=== PATIENT | male | born 1965 | race Caucasian/White ===

== ENCOUNTER 2016-09-22 07:25 | Inpatient (IN) | payer OTHER ==
[2016-09-09 13:19] VITALS: BMI 32.0
--- NOTE | 2016-09-09 13:46 | PAT Medication Instructions ---
Service Date Sep 09, 2016. Current Home Medication List B-Complex Vitamins (B Complex), 1 TAB PO QAM Benazepril (Lotensin), 20 MG PO QAM Diclofenac (Voltaren), 75 MG PO BID PRN for PRN Pravastatin (Pravachol ), 40 MG PO HS Ranitidine (Zantac), 150 MG PO BID PRN for PRN Tramadol (Ultram), 50 MG PO Q8H PRN for Pain Medication Instructions For Your Scheduled Surgery - Hold the following medications 7 days prior to surgery per surgeon's instructions: Diclofenac (Voltaren), 75 MG PO BID PRN for PRN - Hold the following medications the morning of surgery: B-Complex Vitamins (B Complex), 1 TAB PO QAM Benazepril (Lotensin), 20 MG PO QAM - Take the following medications the morning of surgery with a sip of water OTHERWISE NOTHING TO EAT OR DRINK AFTER MIDNIGHT: Tramadol (Ultram), 50 MG PO Q8H PRN for Pain (may take up to 4 hours prior to surgery if needed) Ranitidine (Zantac), 150 MG PO BID PRN for PRN - Take the following medications as scheduled the night before surgery: Tramadol (Ultram), 50 MG PO Q8H PRN for Pain Ranitidine (Zantac), 150 MG PO BID PRN for PRN Pravastatin (Pravachol ), 40 MG PO HS If you have any questions please call us at [phone] or [phone] or [phone]
--- NOTE | 2016-09-09 14:16 | DIAGNOSTIC IMAGING REPORT ---
CHEST 2 VIEWS ROUTINE CLINICAL HISTORY: Preoperative chest COMPARISON STUDY: No previous studies for comparison. FINDINGS: The cardiac and mediastinal contours are normal. There is no evidence of focal pulmonary consolidation. There is no evidence of failure. No pleural effusions are visualized.[ There is a retrocardiac opacity containing an air-fluid level, consistent with a hiatal hernia. IMPRESSION: Hiatal hernia. No active disease in the chest. Electronically signed by: Long Escalona M.D. 09/09/2016 2:14 PM Dictated Date/Time: 09/09/2016 2:14 PM
[2016-09-09 14:33] LABS: BASO % 0.2 %; BASO ABS # 0.01 K/uL (0-0.2); COMPLETE YES; EOS % 2.8 %; HEMATOCRIT 45.2 % (42-52); IG% 0.2 %; LYMPH % 28.3 %; LYMPH ABS # 1.43 K/uL (1.2-3.4); MEAN CELL VOLUME 81.6 fL (80-100); MEAN CORPUSCULAR HEMOGLOBIN 28.9 pg (25-34); MEAN CORPUSCULAR HGB CONC 35.4 g/dl (32-36); MEAN PLATELET VOLUME 9.1 fL (7.4-10.4); MONO % 12.7 %; NEUT % 55.8 %; PLATELET COUNT 205 K/uL (130-400); RED BLOOD COUNT 5.54 M/uL (4.7-6.1); WHITE BLOOD COUNT 5.05 K/uL (4.8-10.8)
[2016-09-09 14:45] LABS: URINE APPEARANCE CLEAR (CLEAR); URINE BILIRUBIN NEG (NEG); URINE COLOR YELLOW; URINE NITRITE NEG (NEG); URINE PH 5.5 (4.5-7.5); URINE SPECIFIC GRAVITY 1.023 (1.000-1.030); UROBILINOGEN NEG (NEG); ZZUR CULT IF INDIC CLEAN CATCH NO
[2016-09-09 14:48] LABS: INR 0.9 (0.9-1.1); PROTHROMBIN TIME (PATIENT) 9.8 SECONDS (9.0-12.0)
[2016-09-09 14:49] LABS: MANUAL MICROSCOPIC REQUIRED? NO; REVIEW REQ? NO
[2016-09-09 14:53] LABS: BUN/CREATININE RATIO 14.1 (10-20); CALCIUM 9.2 mg/dl (8.5-10.1); CREATININE 1.3 mg/dl (0.60-1.40); POTASSIUM 3.9 mmol/L (3.5-5.1)
--- NOTE | 2016-09-12 13:26 | HISTORY & PHYSICAL EXAMINATION ---
DATE OF ADMISSION: 09/22/2016 CHIEF COMPLAINT: Right hip pain. HISTORY OF PRESENT ILLNESS: Gino is a 50-year-old male with a 2-year history of pain in his right hip. He rates his pain a 10/10. He has pain with his daily activities. He has limited standing and walking tolerance. Pain is worse with weightbearing. The patient has had injections, NSAIDs and tramadol without relief. He has failed conservative treatment and is scheduled for right hip replacement. PAST MEDICAL HISTORY: Hypertension, hypercholesterolemia and GERD. He denies heart disease, diabetes or DVT. PAST SURGICAL HISTORY: Hernia repair, cholecystectomy and tonsillectomy. SOCIAL HISTORY: The patient drinks 3 drinks per month. He denies tobacco use. He lives in a bi-level home. 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 FAMILY HISTORY: Negative for DVT. MEDICATIONS: Benazepril 20 mg daily, pravastatin 40 mg daily, ranitidine 150 mg daily, Toradol, tramadol 50 mg p.r.n., diclofenac 75 mg b.i.d. ALLERGIES: None. REVIEW OF SYSTEMS: See HPI. Ten other systems reviewed, all negative. PHYSICAL EXAMINATION: VITAL SIGNS: Height 5 feet 11 inches, weight 229 pounds, BMI is 32. GENERAL: This is a well-developed, well-nourished male who is alert and oriented x3. Mood and affect are appropriate. HEENT: Normocephalic, atraumatic. Mucous membranes are moist and intact. NECK: Supple without lymphadenopathy. HEART: Regular rate and rhythm without murmurs, rubs or gallops. LUNGS: Clear to auscultation without wheezes or rhonchi. ABDOMEN: Large and protuberant. Bowel sounds are equal and active. EXTREMITIES: No ecchymosis, redness or warmth. Thigh and calf are soft and nontender. He walks with an antalgic gait. Logroll of the hip reproduces pain in the groin. He is neurovascularly intact with +5/5 strength. X-RAY EXAMINATION: AP and lateral views show joint space narrowing and osteophyte formation. He also has evidence of cystic formation. IMPRESSION: Degenerative joint disease, right hip. PLAN: The patient will be admitted for a right total hip arthroplasty. We will plan on aspirin for DVT prophylaxis.
[~2016-09-22] VITALS: Ht 180.3 cm; Wt 104.0 kg
[2016-09-22] VITALS (9 sets, daily range): BP systolic 107–144; BP diastolic 65–93; PULSE 68–92; TEMP 36.3–36.9; O2SAT 95–100; Ht 180.3 cm; Wt 104.0 kg
[2016-09-22] MEDS: VANCOMYCIN INJ 400 MG in NSS 100ML IR SCH ×2 (06:00→11:47)
[2016-09-22] MEDS: POLYMYXIN B SULFATE 100,000 UNITS in NSS 100ML IR SCH ×2 (06:00→11:46)
[2016-09-22] MEDS: TRANEXAMIC ACID INJ 1,000 MG in SODIUM CHLORIDE 0.9% 100ML 100 ML IV SCH ×2 (06:30→10:09)
[~2016-09-22 07:25] MED LIST: ACETAMINOPHEN 500 MG TAB PO SCH; B-CO1CAP3 PO; BENA20TA14 PO; BUPIVACAINE 0.5 % 5 MG/1 ML PF 10ML VIAL ONE; CEFAZOLIN 2000 MG/60 ML D5W 60 ML IV SCH; CeleBREX 200 MG CAP PO SCH; DEXAMETHASONE 4 MG TAB PO SCH; DICL-201 PO; FAMOTIDINE 20 MG TAB PO SCH; GABAPENTIN 300 MG CAP PO SCH; LACTATED RINGER'S 1000ML 1,000 ML IV SCH; LACTATED RINGER'S 1000ML 500 ML IV ONE; METOCLOPRAMIDE HCL 10 MG TAB PO SCH; OXYCODONE HCL 10 MG TABCR (OXYCONTIN) PO SCH; PRAV20TA PO; ROPIVACAINE 5MG/ML 30 ML 150 MG, BUPIVACAINE/EPINEPHR 0.5% MPF 30 ML, KETOROLAC TROMETH... INFIL SCH; TRAM-10 PO; ZNTT/150 PO
[2016-09-22] MEDS ORDERED: FENTANYL CITRATE INJ 50 MCG/1 ML 2 ML VIAL IV PRN (07:45)
[2016-09-22] MEDS ORDERED: EpHEDrine SULFATE INJ 50 MG/ML AMP IV PRN (07:45)
[2016-09-22] MEDS ORDERED: ATROPINE SULFATE 0.1 MG/ML 5ML SYR IV PRN (07:45)
[2016-09-22] MEDS ORDERED: ONDANSETRON INJ 2 MG/ML 2 ML VIAL IV PRN ×2 (07:45→12:15)
[2016-09-22] MEDS ORDERED: IBUP-103 PO (08:09)
[2016-09-22] MEDS ORDERED: FENTANYL CITRATE INJ 50 MCG/1 ML 2 ML VIAL ONE (09:10)
[2016-09-22] MEDS ORDERED: PROPOFOL IV EMULSION 10 MG/ML 20 ML VIAL IV ONE ×2 (09:10→11:29)
[2016-09-22] MEDS ORDERED: MIDAZOLAM HCL 1 MG/ML 2ML VIAL ONE (09:10)
[2016-09-22] MEDS ORDERED: ONDANSETRON INJ 2 MG/ML 2 ML VIAL ONE (09:10)
--- NOTE | 2016-09-22 09:28 | History & Physical Bridge Note ---
H&P Re-Evaluation Bridge Note: I have examined the patient, reviewed the History & Physical and in the interval since the performance of the History & Physical I have noted the following changes of clinical significance: No changes noted
[2016-09-22] MEDS ORDERED: POVIDONE-IODINE OP SOLN 30 ML BTL ONE (09:55)
[2016-09-22] MEDS ORDERED: ORTHO JOINT ANESTHETIC ONE (09:55)
[2016-09-22] MEDS ORDERED: BACITRACIN 50000 UNIT VIAL ONE (09:56)
[2016-09-22] MEDS ORDERED: PHENYLEPHRINE 100MCG/ML 5ML SYR ONE (11:29)
[2016-09-22] MEDS ORDERED: PHENYLEPHRINE HCL INJ 10 MG/ML VIAL ONE (11:44)
--- NOTE | 2016-09-22 12:05 | [facility] Post Operative Brief Note ---
Immediate Operative Summary Operative Date Sep 22, 2016. Pre-Operative Diagnosis Degenerative joint disease, right hip Post-Operative Diagnosis same as preoperative diagnosis Procedure(s) Performed Right Total Hip Arthroplasty, Direct Anterior Approach Surgeon Dr. Thomas Manager Leasing Surgeon(s) Ngoc Sheppard PA-C Estimated Blood Loss 100ml Findings SEVERE DZ Specimens A. Right femoral head Complication(s) None Disposition Recovery Room / PACU
[2016-09-22] MEDS ORDERED: ZOLPIDEM TARTRATE 5 MG TAB PO PRN (12:15)
[2016-09-22] MEDS ORDERED: ALUMINUM/MAGNESIUM/SIMETH (MAALOX MAX) 30 ML UDC PO PRN (12:15)
[2016-09-22] MEDS ORDERED: MoRPHine SULFATE 2 MG/ML CARP IV PRN (12:15)
[2016-09-22] MEDS ORDERED: OXYCODONE HCL IR 5 MG TAB (IMMEDIATE RELEASE) PO PRN (12:15)
[2016-09-22] MEDS ORDERED: TRAMADOL HCL 50 MG TAB PO PRN (12:15)
[2016-09-22] MEDS ORDERED: DiphenhydrAMINE HCL 50 MG/ML VIAL IV PRN (12:15)
[2016-09-22] MEDS ORDERED: SOD PHOSPHATE/SOD BIPHOSPHATE ENEMA 132 ML BTL PR PRN (12:15)
[2016-09-22] MEDS ORDERED: BISACODYL 10 MG SUPP PR PRN (12:15)
[2016-09-22] MEDS ORDERED: METOCLOPRAMIDE HCL INJ 5 MG/ML 2 ML VIAL IV PRN (12:15)
[2016-09-22] MEDS ORDERED: MAGNESIUM HYDROXIDE SUSP 30 ML UDC PO PRN (12:15)
--- NOTE | 2016-09-22 12:43 | DIAGNOSTIC IMAGING REPORT ---
RIGHT HIP UNILATERAL 1 VIEW CLINICAL HISTORY: Right hip replacement COMPARISON STUDY: No previous studies for comparison. FINDINGS: A single intraoperative fluoroscopic spot images provided for interpretation. 10 seconds of fluoroscopic time was utilized. There are postsurgical changes of a total right hip arthroplasty. No fractures or dislocations are visualized on this intraoperative fluoroscopic spot image. IMPRESSION: Postsurgical changes of a total right hip arthroplasty. Electronically signed by: Long Escalona M.D. 09/22/2016 12:41 PM Dictated Date/Time: 09/22/2016 12:36 PM
--- NOTE | 2016-09-22 12:49 | Anesthesiology Progress Note ---
Anesthesia Post Op Note Date & Time Sep 22, 2016 at 12:50 Vital Signs Pain Intensity: 0 Vital Signs Past 12 Hours Date Time Temp Pulse Resp B/P Pulse Ox O2 Delivery O2 Flow Rate FiO2 09/22/16 12:45 36.5 74 14 102/72 98 Nasal Cannula 2 09/22/16 12:35 73 22 119/79 97 Nasal Cannula 2 09/22/16 12:28 36.4 73 12 114/77 99 Mask 10 09/22/16 08:16 36.8 68 20 141/91 99 Room Air Notes Mental Status: alert / awake / arousable, participated in evaluation Pt Amnestic to Procedure: Yes Nausea / Vomiting: adequately controlled Pain: adequately controlled Airway Patency, RR, SpO2: stable & adequate BP & HR: stable & adequate Hydration State: stable & adequate Neuraxial Anesthesia: was administered, sensory block is resolving Anesthetic Complications: no major complications apparent
--- NOTE | 2016-09-22 13:01 | DIAGNOSTIC IMAGING REPORT ---
AP PELVIS AND RIGHT HIP 2 VIEWS CLINICAL HISTORY: Postop degenerative arthritis COMPARISON STUDY: No previous studies for comparison. FINDINGS: There are postsurgical changes of a total right hip arthroplasty. The acetabular and femoral components appear well seated. There are no acute fractures. There are no subluxations. There is a surgical drain visualized. There is air within soft tissues consistent with history of recent surgery. IMPRESSION: Postsurgical changes of a total right hip arthroplasty. Electronically signed by: Long Escalona M.D. 09/22/2016 12:59 PM Dictated Date/Time: 09/22/2016 12:59 PM
[2016-09-22] MEDS: D5W AND 1/2NSS + 20MEQ KCL 1,000 ML IV SCH ×2 (13:59→23:44)
[2016-09-22] MEDS: KETOROLAC TROMETHAMINE 30 MG/ML VIAL IV. SCH ×2 (14:03→19:43)
[2016-09-22] MEDS: ACETAMINOPHEN 500 MG TAB PO SCH (17:00)
[2016-09-22] MEDS ORDERED: TRANEXAMIC ACID INJ 1,000 MG in SODIUM CHLORIDE 0.9% 100ML 100 ML IV ONE (18:00)
[2016-09-22] MEDS: CEFAZOLIN IV 2,000 MG in DEXTROSE 5% 50ML 50 ML IV SCH (18:33)
[2016-09-22] MEDS: ASPIRIN 81 MG ECTAB PO SCH (20:39)
[2016-09-22] MEDS ORDERED: PRAVASTATIN SOD 40 MG TAB PO SCH (21:00)
[2016-09-22] MEDS ORDERED: SENNA 8.6 MG TAB PO SCH (21:00)
--- NOTE | 2016-09-22 23:45 | OPERATIVE REPORT ---
DATE OF OPERATION: 09/22/2016 PREOPERATIVE DIAGNOSIS: Severe degenerative arthritis, right hip. POSTOPERATIVE DIAGNOSIS: Same. PROCEDURE: Right total hip replacement. SURGEON: Dr. Thomas. EMBRYOLOGY TEACHER: IRVIN Alvarez. ANESTHESIA: Spinal. BLOOD LOSS: 100 mL REPLACEMENT FLUIDS: 1500 mL crystalloid. DRAINS: Hemovac x1. CULTURES: None. COMPLICATIONS: None. COMPONENTS USED: [employer] hip system: Acetabulum size 54, femur size 8 standard offset, femoral head +4, 36 mm. NOTE: IRVIN Alvarez, was present and assisted throughout due to the complicated nature of this case. She helped with preparation and set up, first assisted throughout, and personally closed the fascial, subcutaneous and skin layers, and applied the postop dressing. DESCRIPTION: Following satisfactory spinal, the patient was supine. The right leg was placed in the traction device in the well-leg marin. Leg was prepared with ChloraPrep and draped sterilely. Following a surgical timeout, an anterior approach in the interval between the sartorius and tensor muscles was completed. Circumflex femoral vessels were identified and ligated. Anterior capsulotomy was performed exposing a severely arthritic femoral neck and head. The femoral neck and head were trimmed and removed. The acetabular self-retraining retractor was placed. Acetabular preparation and reaming was completed, and under fluoroscopic guidance, a 54 shell was impacted into an anatomic position, secured with a dome screw. Following local anesthetic and irrigation, the cross-linked poly liner was placed. The femur was then placed into a position of external rotation, extension and adduction. Femoral canal was prepared up to a size 8. A trial reduction with a +4 head using fluoroscopy showed good fit and fill of the proximal canal, catholic of leg lengths using fluoroscopic anatomic landmarks. The hip was dislocated, trial component was removed. After irrigation and local anesthetic, final implant was placed. The hip was reduced with fluoroscopy confirming similar findings. A Betadine soak was performed for 5 minutes. The Betadine was then irrigated. The capsule was closed with 1 Vicryl interrupted. Following irrigation, a drain was placed. The fascia was closed with a running suture of 1 Vicryl, the subcutaneous tissues with 2-0 Vicryl, the skin with a running subcuticular stitch of 3-0 V-Loc. Dermabond and a dry dressing were applied. The patient was returned to his bed in stable condition. I attest to the content of the Intraoperative Record and any orders documented therein. Any exceptio ns are noted below.
[2016-09-23] MEDS: CEFAZOLIN IV 2,000 MG in DEXTROSE 5% 50ML 50 ML IV SCH (01:25)
[2016-09-23] MEDS: ACETAMINOPHEN 500 MG TAB PO SCH ×2 (01:25→08:53)
[2016-09-23] MEDS: KETOROLAC TROMETHAMINE 30 MG/ML VIAL IV. SCH ×3 (01:26→14:00)
[2016-09-23 03:50] VITALS: BP 99/59; PULSE 59; TEMP 36.5; O2SAT 97
[2016-09-23 06:18] LABS: COMPLETE YES; HEMATOCRIT 34.4 % (42-52); IG% 0.2 %; LYMPH % 12.9 %; LYMPH ABS # 1.44 K/uL (1.2-3.4); MEAN CELL VOLUME 80.4 fL (80-100); MEAN CORPUSCULAR HEMOGLOBIN 28.3 pg (25-34); MEAN CORPUSCULAR HGB CONC 35.2 g/dl (32-36); MEAN PLATELET VOLUME 8.8 fL (7.4-10.4); MONO % 9.5 %; NEUT % 77.4 %; PLATELET COUNT 177 K/uL (130-400); RED BLOOD COUNT 4.28 M/uL (4.7-6.1); WHITE BLOOD COUNT 11.19 K/uL (4.8-10.8)
[2016-09-23 06:45] LABS: BUN/CREATININE RATIO 15.4 (10-20); CREATININE 1.3 mg/dl (0.60-1.40); POTASSIUM 4.1 mmol/L (3.5-5.1)
[2016-09-23 07:48] VITALS: BP 116/72; PULSE 57; TEMP 36.8; O2SAT 97
--- NOTE | 2016-09-23 08:13 | Orthopedic Progress Note ---
Orthopedic Progress Note Date of Service Sep 23, 2016. Subjective Post OP Day: 1 Reports: feeling well, Denies: SOB, calf pain, chest pain, light headedness, nausea / vomiting Objective calves soft nontender, N/V intact, hip located, dressing C/D/I, A&O x3, toes mobile, hemovac drainage (50ml latest shift) Date Time Temp Pulse Resp B/P Pulse Ox O2 Delivery O2 Flow Rate FiO2 09/23/16 07:48 36.8 57 18 116/72 97 Room Air 09/23/16 03:50 36.5 59 16 99/59 97 Room Air 09/22/16 23:50 36.9 69 16 110/68 96 Room Air 09/22/16 23:50 Room Air 09/22/16 20:00 95 Room Air 09/22/16 19:13 36.8 92 17 130/76 95 Room Air 09/22/16 15:57 36.6 74 17 144/91 97 Nasal Cannula 2.0 09/22/16 15:07 36.3 70 17 123/77 98 Nasal Cannula 2.0 09/22/16 14:00 74 16 134/93 100 Nasal Cannula 2.0 09/22/16 13:34 97 Nasal Cannula 2.0 09/22/16 13:26 97 Nasal Cannula 2.0 09/22/16 13:00 36.6 68 16 107/65 97 Nasal Cannula 2.0 09/22/16 12:55 74 18 110/64 98 Nasal Cannula 2 09/22/16 12:45 36.5 74 14 102/72 98 Nasal Cannula 2 09/22/16 12:35 73 22 119/79 97 Nasal Cannula 2 09/22/16 12:28 36.4 73 12 114/77 99 Mask 10 09/22/16 08:16 36.8 68 20 141/91 99 Room Air Laboratory Results 24 Hours: Test 09/23/16 06:07 White Blood Count 11.19 K/uL Red Blood Count 4.28 M/uL Hemoglobin 12.1 g/dL Hematocrit 34.4 % Mean Corpuscular Volume 80.4 fL Mean Corpuscular Hemoglobin 28.3 pg Mean Corpuscular Hemoglobin Concent 35.2 g/dl Platelet Count 177 K/uL Mean Platelet Volume 8.8 fL Neutrophils (%) (Auto) 77.4 % Lymphocytes (%) (Auto) 12.9 % Monocytes (%) (Auto) 9.5 % Eosinophils (%) (Auto) 0.0 % Basophils (%) (Auto) 0.0 % Neutrophils # (Auto) 8.67 K/uL Lymphocytes # (Auto) 1.44 K/uL Monocytes # (Auto) 1.06 K/uL Eosinophils # (Auto) 0.00 K/uL Basophils # (Auto) 0.00 K/uL Assessment & Plan Assessment: POD 1 s/p Right REAL (DA) Plan: PT/OT today Planning for home with Home Health Services Possible dc to home today Inhouse Planning Pain Management: Celebrex, Toradol, Ultram, Morphine, PO Tylenol, Oxy IR DVT Prophylaxis: TEDs, SCDs, ASA Discharge Planning Discharge Planning: home with home health Pain Management: Celebrex, PO Tylenol, Oxy IR DVT Prophylaxis: TEDs, ASA Therapy: Physical Therapy
[2016-09-23] MEDS ORDERED: ASPEC81 PO (08:18)
[2016-09-23] MEDS ORDERED: CLB200 PO (08:18)
[2016-09-23] MEDS ORDERED: SNK PO (08:18)
[2016-09-23] MEDS ORDERED: ACET-1138 PO (08:18)
[2016-09-23] MEDS ORDERED: ONDA8TAB6 PO (08:18)
[2016-09-23] MEDS ORDERED: RXC5 PO (08:18)
--- NOTE | 2016-09-23 08:22 | Discharge Instructions ---
Discharge Instructions Date of Service Sep 23, 2016. Admission Reason for Admission: Right Degenerative Arhtritis - Pelvis/Thigh Discharge Discharge Diagnosis / Problem: Right Hip Djd Discharge Goals Goal(s): Decrease discomfort, Improve function Activity Recommendations Activity Limitations: per Instructions/Follow-up section Weightbearing Status: Right weightbearing (as tolerated) . Instructions / Follow-Up Instructions / Follow-Up ACTIVITY RECOMMENDATIONS: SELF CARE INSTRUCTIONS AFTER TOTAL HIP REPLACEMENT : Direct Anterior Approach Until the incision and soft tissues around your hip have healed, there is a possibility that the hip prosthesis could dislocate. A. Hip flexion ( Up & Down out of chair or steps ) may be difficult. This is normal. B. Numbness in front of the thigh is also normal for a few weeks. C. Use hand rails when walking on stairs. D. Wear low heeled shoes with non-slip soles. E. Be sure that your floors are free of things that could trip you - throw rugs , electrical cords, small objects. Avoid wet and waxed floors, especially with crutches and canes. F. Try to walk several times a day with rest periods between. G. Continue with all the exercises taught to you in the hospital. Again, make walking a part of your daily routine. SPECIAL CARE INSTRUCTIONS: VERY IMPORTANT TO READ AND REVIEW A. You may still be at risk for phlebitis and blood clots. 1. Wear surgical stockings (RORY hose) for 2 weeks after surgery to improve circulation and reduce swelling. 2. Take Aspirin 81mg twice daily for 4 weeks or as directed by your doctor. This is your blood thinner. 3. High risk patients may be prescribed a stronger blood thinner if necessary. 4. If you are on Coumadin normally, your family doctor/patient relations director should monitor your blood work. Expect a phone call the day of or the day after bloodwork is drawn to adjust your dosage. B. You must take antibiotics before having dental work, bladder, bowel and other surgery. Your doctor will provide you with a permanent card to carry describing precautions. C. Call [facility] if you have a fever, redness or swelling around the incision, cloudy drainage from incision, or sudden increase in pain in your hip, not relieved by your regular pain medication. D. Please call the office at if you have any concerns or questions about your operation or recovery. * YOU MAY SHOWER, NO TUB BATHS UNTIL CLEARED BY YOUR DOCTOR. - Keep an extra close eye on the top portion of your incision. Be sure to keep clean & dry. * WEAR RORY HOSE 20 HOURS PER DAY FOR 2 WEEKS. * YOU MAY PROGRESS FROM A WALKER, TO A CANE, TO INDEPENDENT AT YOUR OWN PACE. * MOST PATIENTS WILL HAVE HOME NURSING FOR THERAPY. IF YOU DECIDE TO DO OUTPATIENT PHYSICAL THERAPY, PLEASE SCHEDULE THIS 3 TIMES PER WEEK. * DERMABOND Prineo- This is a mesh tape dressing that is covered with glue. It should remain in place until the incision is properly healed, usually 10-14 days. This dressing is designed to naturally slough off. You may trim the excess mesh tape as it peels off. Incision may be briefly wet in a shower. Dry immediately by blotting with a clean, dry towel. Do not bath or swim until instructed by your doctor. Do not scratch, rub, or pick at the dressing. Do not apply any topical ointments or lotions until dressing is completely removed and/or instructed by your doctor. There may be a small piece of suture material at one end of your incision. Do not pull or trim this. If it is bothersome or catching on clothing, you may cover it with a band-aid. FOLLOW UP VISIT: If appointment is not already scheduled: Please call [facility] to make a follow-up appointment for 2 weeks after your surgery at . Current Hospital Diet Patient's current hospital diet: Regular Diet Discharge Diet Recommended Diet: Regular Diet Procedures Procedures Performed: Right Total Hip Arthroplasty, Direct Anterior Approach Pending Studies Studies pending at discharge: no Medical Emergencies . Who to Call and When: Medical Emergencies: If at any time you feel your situation is an emergency, please call 911 immediately. . Non-Emergent Contact Non-Emergency issues call your: Surgeon Call Non-Emergent contact if: temperature is above 101.5, your pain is not controlled, your pain is worsening, wound has increased drainage, wound has increased redness . "Provider Documentation" section prepared by Vern Baires. VTE Core Measure Inpt VTE Proph given/why not?: Other Anticoagulation, T.E.D. Stockings, SCD's [place] Drug Monitoring Program Search Results: patient reviewed within database, no issues identified
[2016-09-23] MEDS: ASPIRIN 81 MG ECTAB PO SCH (08:51)
[2016-09-23] MEDS ORDERED: BENAZEPRIL HCL 10 MG TAB PO SCH (09:00)
[2016-09-23] MEDS ORDERED: PANTOprazole SOD 40 MG TAB PO SCH (09:00)
[2016-09-23] MEDS ORDERED: MULTIVITAMIN TAB PO SCH (09:00)
--- NOTE | 2016-09-23 09:32 | Anesthesiology Progress Note ---
Anesthesia Post Op Note Date & Time Sep 23, 2016 at 09:32 Vital Signs Pain Intensity: 1.0 Vital Signs Past 12 Hours Date Time Temp Pulse Resp B/P Pulse Ox O2 Delivery O2 Flow Rate FiO2 09/23/16 07:48 36.8 57 18 116/72 97 Room Air 09/23/16 07:25 Room Air 09/23/16 03:50 36.5 59 16 99/59 97 Room Air 09/22/16 23:50 36.9 69 16 110/68 96 Room Air 09/22/16 23:50 Room Air Notes Mental Status: alert / awake / arousable, participated in evaluation Pt Amnestic to Procedure: Yes Nausea / Vomiting: adequately controlled Pain: adequately controlled Airway Patency, RR, SpO2: stable & adequate BP & HR: stable & adequate Hydration State: stable & adequate Neuraxial Anesthesia: was administered, sensory block resolved Anesthetic Complications: no major complications apparent
[2016-09-23] MEDS: D5W AND 1/2NSS + 20MEQ KCL 1,000 ML IV SCH (10:03)
[2016-09-23 11:57] VITALS: BP 113/66; PULSE 67; TEMP 36.6; O2SAT 100
[2016-09-23 12:30] VITALS: BP 113/66; PULSE 67; TEMP 36.6; O2SAT 100
[2016-09-24] MEDS ORDERED: CeleBREX 200 MG CAP PO SCH (21:00)
--- NOTE | 2016-09-29 14:10 | DISCHARGE SUMMARY ---
DISCHARGE DIAGNOSIS: Degenerative joint disease, right hip. SECONDARY DIAGNOSIS: None. CONSULTS: None. COMPLICATIONS: None. PROCEDURE: The patient underwent a direct anterior right total hip arthroplasty with Dr. Thomas on 09/22/2016. BRIEF HISTORY: Please see previously dictated history and physical. HOSPITAL SUMMARY: The patient was admitted on the above day for the above procedure. Procedure went without complication. Postop day #1, the patient was feeling well without complaints. She denied chest pain or shortness of breath. Vital signs were stable. She was afebrile. Dressing was clean, dry and intact. She was neurovascularly intact. Calves were soft and nontender. Hemovac drained 50 mL. Hemoglobin was 12.1. The patient began physical therapy per protocol. She was discharged home later that day in stable condition. For further review, please see the chart. Lab, x-ray data and discharge instructions as per chart.
== END 2016-09-23 14:36 | disposition home health service (06) | DRG 470 ==
LOC: ENRESERVDT → ENRESERVTM → C.ACU 07:25 → C.3E 08:45
PROVIDERS: ADMIT Orthopaedic Surgery; ATTEND Orthopaedic Surgery
PROC: 0SR904Z Replacement of Right Hip Joint with Ceramic on Polyethylene Synthetic Substitute, Open Approach (ICD-10-PCS; principal; 2016-09-22 10:15)
DX: M16.11 Unilateral primary osteoarthritis, right hip (principal); K21.9 Gastro-esophageal reflux disease without esophagitis; E78.00 Pure hypercholesterolemia, unspecified; I10 Essential (primary) hypertension; G47.33 Obstructive sleep apnea (adult) (pediatric); R20.0 Anesthesia of skin; M54.5 Low back pain; E66.9 Obesity, unspecified; Z68.32 Body mass index [BMI] 32.0-32.9, adult; Z79.1 Long term (current) use of non-steroidal anti-inflammatories (NSAID); Z79.899 Other long term (current) drug therapy; Z79.891 Long term (current) use of opiate analgesic